=== PATIENT | female | born 1985 | race Caucasian/White ===

== ENCOUNTER 2022-10-31 18:43 | Emergency (ER) | payer OTHER, SELFPAY ==
[2022-10-31 18:50] VITALS: BP 115/64; PULSE 87; RESP 16; TEMP 37.2; O2SAT 99; BMI 32.0
--- NOTE | 2022-10-31 19:05 | CT_ITS ---
The [address] [address] Patient Name: KIAN DUNBAR MRN: [id number] date: 1985 Sex: F Assigned Patient Location: ER Current Patient Location: ER Accession/Order Number: [id number] Exam Date: 10/31/2022 20:08 Report Date: 10/31/2022 20:53 At the request of: YEISON FERMIN Procedure: CT abdomen pelvis w con EXAMINATION: CT ABDOMEN AND PELVIS WITH IV CONTRAST CLINICAL HISTORY: Low abdominal pain, nausea, vaginal and rectal pain TECHNIQUE: CT of the abdomen and pelvis was performed using standard technique, scanning from just above the dome of the diaphragm to the symphysis pubis. All CT scans at this facility use dose modulation, iterative reconstruction, and/or weight based dosing when appropriate to reduce radiation dose to as low as reasonably achievable. Contrast: IV: 100 ml of Omnipaque 300 COMPARISON: None. RESULT: Liver: No mass. Biliary: No bile duct dilation. Gallbladder is unremarkable. Spleen: No mass. No splenomegaly. Pancreas: No mass or duct dilation. Adrenals: No mass. Kidneys: No mass, calculus or hydronephrosis. GI tract: Small hiatal hernia. No bowel dilation or wall thickening. Moderate colonic stool. Appendix is unremarkable. Lymph nodes: No abdominal or pelvic lymphadenopathy. Mesentery/Peritoneum: No ascites or mass. Retroperitoneum: No mass. Vasculature: The celiac axis and SMA are patent. The portal vein and branches, splenic vein, SMV, and hepatic veins are patent. No abdominal aortic aneurysm. Pelvis: No mass, ascites or fluid collection. Urinary bladder is unremarkable. Bones/Soft Tissues: No significant finding. Lower thorax: Unremarkable. CT/CT abdomen pelvis w con IMPRESSION: No acute findings in the abdomen and pelvis. Electronically authenticated by: GERRY FARRAR Date: 10/31/2022 20:53
--- NOTE | 2022-10-31 19:06 | ED_ITS ---
HPI - Abdominal Pain General Chief Complaint: Abdominal Pain Stated Complaint: abdominal Pain Time Seen by Provider: 10/31/22 18:56 Source: patient Mode of arrival: walk-in Limitations: no limitations History of Present Illness HPI narrative: patient is a 37-year-old female who presents to the emergency department for a one-day history of abdominal pain and pressure. She states yesterday morning she felt some pain and pressure in the suprapubic abdomen. She states that pain resolved but returned today and was much more significant. She reports pressure in the pelvis as well as sharp/shooting vaginal and rectal pain. She thought she might be constipated so she gave herself an enema earlier today. She states she had an average bowel movement after the enema with no blood, although she did have severe rectal pain with the bowel movement. She has had a previous uterine ablation and Essure procedure she is not concerned for . She has not had any fevers, vomiting. She denies urinary symptoms. No vaginal bleeding or discharge. Related Data Home Medications Medication Instructions Recorded Confirmed duloxetine 20 mg capsule,delayed 20 mg PO BID 10/31/22 10/31/22 release guanfacine 2 mg tablet,extended 2 mg PO DAILY 10/31/22 10/31/22 release 24 hr lamotrigine 100 mg tablet 100 mg PO DAILY 10/31/22 10/31/22 Previous Rx's Medication Instructions Recorded naproxen sodium 550 mg tablet 550 mg PO BID PRN pain #6 tabs 10/31/22 ondansetron 4 mg disintegrating 4 mg PO Q6H PRN nausea and 10/31/22 tablet vomiting #12 tabs oxycodone-acetaminophen 5 mg-325 1 tab PO Q6H PRN pain #12 tabs 10/31/22 mg tablet (Percocet) tizanidine 4 mg tablet (Zanaflex) 4 mg PO TID PRN muscle spasticity 10/31/22 #12 tabs Allergies Allergy/AdvReac Type Severity Reaction Status Date / Time vancomycin Allergy Severe Anaphylaxis Verified 10/31/22 18:47 Review of Systems ROS Constitutional Denies: fever or chills Ears, nose, mouth, and throat Denies: throat pain or neck pain Cardiovascular Denies: chest pain Respiratory Denies: shortness of breath or cough Gastrointestinal Reports: abdominal pain and rectal pain; Denies: nausea, vomiting or diarrhea Genitourinary Reports: pelvic pain; Denies: painful urination Musculoskeletal Denies: back pain Integumentary/Breast Denies: rash Endocrine Denies: excessive urination Hematologic/Lymphatic Denies: easy bruising PFSH [facility] Social History Smoking status: Heavy tobacco smoker Exam Constitutional Vital Signs, click to edit/add: Last Vital Signs Temp 98.9 F 10/31/22 18:50 Pulse 87 10/31/22 18:50 Resp 16 10/31/22 18:50 BP 115/64 10/31/22 18:50 Pulse Ox 99 10/31/22 18:50 O2 Del Method Room Air 10/31/22 18:50 Course Vital Signs Vital signs: Vital Signs Temperature 98.9 F 10/31/22 18:50 Pulse Rate 87 10/31/22 18:50 Respiratory Rate 16 10/31/22 18:50 Blood Pressure 115/64 10/31/22 18:50 Pulse Oximetry 99 10/31/22 18:50 Oxygen Delivery Method Room Air 10/31/22 18:50 Temperature 98.9 F 10/31/22 18:50 Pulse Rate 87 10/31/22 18:50 Respiratory Rate 16 10/31/22 18:50 Blood Pressure 115/64 10/31/22 18:50 Pulse Oximetry 99 10/31/22 18:50 Oxygen Delivery Method Room Air 10/31/22 18:50 MDM - Abdominal Pain MDM Narrative Medical decision making narrative: lab studies are stable. Pelvic exam and rectal exam are performed at bedside with Kelly looney RN at bedside throughout the duration of the exam. There is no evidence of prolapse, no active drainage or masses noted to the rectum or vaginal area. No vaginal bleeding or discharge noted on exam. Patient was treated with IV fluids, analgesics and Zofran. She is resting comfortably on reevaluation. Urine specimen and labs are unremarkable, CT of the abdomen and pelvis with no evidence of acute process. Patient was given education and reassurance. Her symptoms are consistent with pain in the pelvic floor and muscles of the pelvic floor. She is placed on a short course of analgesics, muscle relaxants, NSAIDs and nausea medication. She strongly encouraged follow-up with her [employer]. Return to the Emergency Room if symptoms change or worsen. Abdomen is soft and benign with stable vital signs at discharge. Medical Records Attestation: I reviewed the patient's medical records. Lab Data Attestation: I reviewed the patient's lab results. Labs: Lab Results 10/31/22 10/31/22 Range/Units 19:10 19:15 WBC 14.2 H (4.0-11.0) 10^3/uL RBC 4.53 (4.20-5.40) 10^6/uL Hgb 13.7 (12.0-16.0) g/dL Hct 41.6 (36.0-48.0) % MCV 91.8 (81.0-99.0) fL MCH 30.2 (26.7-34.0) pg MCHC 32.9 (29.9-35.2) g/dL RDW 13.4 (11.0-15.0) % Plt Count 260 (150-450) 10^3/uL MPV 12.4 (9.5-13.5) fL Neut % (Auto) 76.1 H (43.0-75.0) % Lymph % (Auto) 17.8 L (20.5-60.0) % Mcclain % (Auto) 3.9 (1.7-12.0) % Eos % (Auto) 1.3 (0.9-7.0) % Baso % (Auto) 0.4 (0.2-2.0) % Neut # (Auto) 10.8 H (1.4-6.5) 10^3/uL Lymph # (Auto) 2.5 (1.2-3.8) 10^3/uL Mcclain # (Auto) 0.6 (0.3-0.8) 10^3/uL Eos # (Auto) 0.2 (0.0-0.7) 10^3/uL Baso # (Auto) 0.1 (0.0-0.1) 10^3/uL Abs Immat Gran (auto) 0.07 H (0.00-0.03) 10^3/uL Imm/Tot Granulo (auto) 0.5 (0.0-0.5) % Sodium 139 (136-145) mmol/L Potassium 3.9 (3.5-5.1) mmol/L Chloride 102 (98-107) mmol/L Carbon Dioxide 27.7 (21.0-32.0) mmol/L Anion Gap 13.2 BUN 7.0 (7.0-18.0) mg/dL Creatinine 0.90 (0.55-1.02) mg/dL Est GFR ( Amer) >60 (>=60) Est GFR (Non-Af Amer) >60 (>=60) BUN/Creatinine Ratio 7.8 Glucose 103 (74-106) mg/dL Calcium 8.7 (8.5-10.1) mg/dL Total Bilirubin 0.5 (0.2-1.0) mg/dL AST 12 L (15-37) U/L ALT 12 L (14-59) U/L Alkaline Phosphatase 92 (46-116) U/L Total Protein 7.2 (6.4-8.2) g/dL Albumin 3.7 (3.4-5.0) g/dL Globulin 3.5 g/dL Albumin/Globulin Ratio 1.1 Serum HCG, Qual Negative (NEGATIVE) Urine Color Lt. yellow (YELLOW) Urine Clarity Clear (CLEAR) Urine pH 7.0 (5.0-9.0) Ur Specific [place] <=1.005 A (1.005-1.025) Urine Protein Negative (NEG/TRACE) mg/dL Urine Glucose (UA) Negative (NEGATIVE) mg/dL Urine Ketones Negative (NEGATIVE) mg/dL Urine Occult Blood Trace-i (NEGATIVE) Urine Nitrite Negative (NEGATIVE) Urine Bilirubin Negative (NEGATIVE) Urine Urobilinogen 0.2 (0.2-1.0) EU/dL Ur Leukocyte Esterase Negative (NEGATIVE) Imaging Data CT scan - abdomen: Attestation: I have reviewed the pertinent imaging results. Radiologist's impression: Procedure: CT abdomen pelvis w con EXAMINATION: CT ABDOMEN AND PELVIS WITH IV CONTRAST CLINICAL HISTORY: Low abdominal pain, nausea, vaginal and rectal pain TECHNIQUE: CT of the abdomen and pelvis was performed using standard technique, scanning from just above the dome of the diaphragm to the symphysis pubis. All CT scans at this facility use dose modulation, iterative reconstruction, and/or weight based dosing when appropriate to reduce radiation dose to as low as reasonably achievable. Contrast: IV: 100 ml of Omnipaque 300 COMPARISON: None. RESULT: Liver: No mass. Biliary: No bile duct dilation. Gallbladder is unremarkable. Spleen: No mass. No splenomegaly. Pancreas: No mass or duct dilation. Adrenals: No mass. Kidneys: No mass, calculus or hydronephrosis. GI tract: Small hiatal hernia. No bowel dilation or wall thickening. Moderate colonic stool. Appendix is unremarkable. Lymph nodes: No abdominal or pelvic lymphadenopathy. Mesentery/Peritoneum: No ascites or mass. Retroperitoneum: No mass. Vasculature: The celiac axis and SMA are patent. The portal vein and branches, splenic vein, SMV, and hepatic veins are patent. No abdominal aortic aneurysm. Pelvis: No mass, ascites or fluid collection. Urinary bladder is unremarkable. Bones/Soft Tissues: No significant finding. Lower thorax: Unremarkable. IMPRESSION: No acute findings in the abdomen and pelvis. Electronically authenticated by: GERRY FARRAR Date: 10/31/2022 20:53 Discharge Plan Discharge Chief Complaint: Abdominal Pain Clinical Impression: Pelvic pain Patient Disposition: Home, Self-Care Time of Disposition Decision: 21:10 Condition: Good Prescriptions / Home Meds: New oxycodone-acetaminophen [Percocet] 5-325 mg tablet 1 tab PO Q6H PRN (Reason: pain) Qty: 12 0RF Rx Instructions: DX: R10.2 ondansetron 4 mg tablet,disintegrating 4 mg PO Q6H PRN (Reason: nausea and vomiting) Qty: 12 0RF tizanidine [Zanaflex] 4 mg tablet 4 mg PO TID PRN (Reason: muscle spasticity) Qty: 12 0RF naproxen sodium 550 mg tablet 550 mg PO BID PRN (Reason: pain) Qty: 6 0RF Rx Instructions: take with food No Action duloxetine 20 mg capsule,delayed release(DR/EC) 20 mg PO BID guanfacine 2 mg tablet extended release 24 hr 2 mg PO DAILY lamotrigine 100 mg tablet 100 mg PO DAILY Instructions: Pelvic Pain (ED) Stand Alone Forms: Portal Instructions Referrals: NITA LADD [Physician] - 1 week Physician,Non-Staff, MD [Primary Care Provider] - 1 week
[2022-10-31 19:34] LABS: Basophils Absolute Auto 0.1 10^3/uL (0.0-0.1); Basophils Percent Auto 0.4 % (0.2-2.0); Eosinophils Absolute Auto 0.2 10^3/uL (0.0-0.7); Eosinophils Percent Auto 1.3 % (0.9-7.0); Hematocrit 41.6 % (36.0-48.0); Hemoglobin 13.7 g/dL (12.0-16.0); Immature Granulocytes Abs Auto 0.07 10^3/uL (0.00-0.03); Immature Granulocytes Pct Auto 0.5 % (0.0-0.5); Lymphocytes Absolute Auto 2.5 10^3/uL (1.2-3.8); Lymphocytes Percent Auto 17.8 % (20.5-60.0); Mean Corpuscular HGB Conc 32.9 g/dL (29.9-35.2); Mean Corpuscular Hemoglobin 30.2 pg (26.7-34.0); Mean Corpuscular Volume 91.8 fL (81.0-99.0); Mean Platelet Volume 12.4 fL (9.5-13.5); Monocytes Absolute Auto 0.6 10^3/uL (0.3-0.8); Monocytes Percent Auto 3.9 % (1.7-12.0); Neutrophils Absolute Auto 10.8 10^3/uL (1.4-6.5); Neutrophils Percent Auto 76.1 % (43.0-75.0); Platelet Count 260 10^3/uL (150-450); Red Blood Count 4.53 10^6/uL (4.20-5.40); Red Cell Distribution Width 13.4 % (11.0-15.0); White Blood Count 14.2 10^3/uL (4.0-11.0)
[2022-10-31 19:36] LABS: Bilirubin Urine NEGATIVE (NEGATIVE); Blood Urine TRACE-I (NEGATIVE); Clarity Urine CLEAR (CLEAR); Color Urine LT. YELLOW (YELLOW); Glucose Urine UA NEGATIVE (NEGATIVE); Ketones Urine NEGATIVE (NEGATIVE); Leukocyte Esterase Urine NEGATIVE (NEGATIVE); Nitrite Urine NEGATIVE (NEGATIVE); Protein Urine NEGATIVE (NEG/TRACE); Specific Gravity Urine <=1.005 (1.005-1.025); Urobilinogen Urine 0.2 EU/dL (0.2-1.0)
[2022-10-31 19:39] LABS: Urine Microscopic Indicated NO
[2022-10-31] MEDS: ONDANSETRON PF 4 MG/2 ML VIAL IV (19:42)
[2022-10-31 19:43] LABS: HCG Qualitative NEGATIVE (NEGATIVE)
[2022-10-31] MEDS: KETOROLAC TROMETHAMINE 30 MG/ML VIAL IVP (19:43)
[2022-10-31] MEDS: 0.9 % SODIUM CHLORIDE 1,000 ML 999 ML IV (19:43)
[2022-10-31] MEDS: HYDROMORPHONE HCL 1 MG/ML CARTRIDGE IVP (19:43)
[2022-10-31 19:48] LABS: Alanine Aminotransferase 12 U/L (14-59); Albumin Globulin Ratio 1.1; Albumin Level 3.7 g/dL (3.4-5.0); Alkaline Phosphatase 92 U/L (46-116); Anion Gap 13.2; Aspartate Amino Transferase 12 U/L (15-37); BUN Creatinine Ratio 7.8; Bilirubin Total 0.5 mg/dL (0.2-1.0); Calcium 8.7 mg/dL (8.5-10.1); Carbon Dioxide 27.7 mmol/L (21.0-32.0); Chloride 102 mmol/L (98-107); Estimated GFR (African America >60 (>=60); Estimated GFR (Non-African Ame >60 (>=60); Globulin 3.5 g/dL; Glucose 103 mg/dL (74-106); Potassium 3.9 mmol/L (3.5-5.1); Sodium 139 mmol/L (136-145); Total Protein 7.2 g/dL (6.4-8.2)
[2022-10-31] MEDS: ORPHENADRINE 60 MG/ 2 ML VIAL IV (21:34)
[2022-10-31] MEDS: OXYCODONE HCL/ACETAMINOPHEN 5MG/325MG 2 TAB PO (21:35)
[2022-10-31] MEDS: TIZANIDINE HCL 4 MG TABLET PO (21:35)
== END 2022-10-31 21:50 | disposition home or self-care (01) ==
PROVIDERS: Physician Assistant; Emergency Provider Emergency Medicine
DX: R10.2 Pelvic and perineal pain (principal); Z79.899 Other long term (current) drug therapy; F17.210 Nicotine dependence, cigarettes, uncomplicated
CPT/HCPCS: 36415; 74177; 80053; 81003; 84703; 85025; 96374; 96375; 99285; J1170; Q9967